=== PATIENT | male | born 2000 | race Hispanic/Latino ===

== ENCOUNTER 2022-11-30 15:23 | Outpatient (CLI) | payer BC | END 2022-11-30 15:24 | disposition home or self-care (01) | LOC: ULT 15:23 | PROVIDERS: ATTEND Urology | DX: N50.819 Testicular pain, unspecified (principal); R35.0 Frequency of micturition; R10.2 Pelvic and perineal pain; Z86.19 Personal history of other infectious and parasitic diseases | CPT/HCPCS: 76770 ==